=== PATIENT | female | born 1985 | race Caucasian/White ===

== ENCOUNTER 2020-04-15 09:46 | Day surgery (SDC) | payer OTHER ==
[~2020-04-15] VITALS: Ht 167.6 cm; Wt 78.1 kg
[2020-04-15] MEDS ORDERED: FIORICET 325 MG1 TA1 PO (11:18)
[2020-04-15] MEDS ORDERED: ADVIL200 MG PO (11:20)
[2020-04-15 11:40] VITALS: BP 110/72; PULSE 78; TEMP 97.9
[2020-04-15 12:41] VITALS: BP 114/82; PULSE 64; TEMP 97.7
[2020-04-15 12:45] VITALS: BP 113/78; PULSE 64
[2020-04-15 13:00] VITALS: BP 114/72; PULSE 63
[2020-04-15 13:15] VITALS: BP 112/80; PULSE 61
[2020-04-15 13:20] VITALS: BP 114/73; PULSE 73
--- NOTE | 2020-04-15 13:51 | NUR ---
PT RETURNED FROM ENDOSCOPY PROCEDURE ROOM PER CART INTO BAY#2. PT ALERT AND SLEEPY. LUNGS CLEAR, HRR, BOWEL SOUNDS PRESENT. PT DENIES PAIN OR NAUSEA AT THIS TIME. APPLE JUICE AND VIANNEY CRACKERS REQUESTED AND OFFERED. WILL CONT TO MONITOR PROGRESS.
--- NOTE | 2020-04-15 14:04 | NUR ---
PT ALERT AND ORIENTATED. TOLERATING FOOD AND FLUIDS. UP TO THE BATHROOM WITHOUT DIFFICULTY. DISMISSAL INSTRUCTIONS GIVEN, PT DENIES QUESTIONS. PT DENIES PAIN OR NAUSEA OR VOMITING. IV DC'D TO RIGHT WRIST WITHOUT DIFFICULTY. PT DISMISSED PER WC TO FAMILY VEHICLE. , MITA MARR.
== END 2020-04-15 14:10 | disposition home or self-care (01) ==
LOC: SDCO 09:46
DX: K59.00 Constipation, unspecified (principal); K64.0 First degree hemorrhoids; K21.00 Gastro-esophageal reflux disease with esophagitis, without bleeding; Q39.8 Other congenital malformations of esophagus; F41.9 Anxiety disorder, unspecified; G43.909 Migraine, unspecified, not intractable, without status migrainosus
CPT/HCPCS: J2250; J2704; J3010; J7030

== ENCOUNTER → 2020-06-26 | Outpatient (CLI) | payer OTHER ==
[~2020-06-26] MED LIST: ADVIL200 MG PO; FIORICET 325 MG1 TA1 PO
== END ==
LOC: COL.RAD 06-15 08:00
DX: K21.9 Gastro-esophageal reflux disease without esophagitis (principal); R14.0 Abdominal distension (gaseous)
CPT/HCPCS: A9541

== ENCOUNTER 2021-08-04 07:17 | Emergency (ER) | payer OTHER ==
[~2021-08-04] VITALS: Ht 167.6 cm; Wt 86.4 kg
[2021-08-04 07:25] VITALS: BP 120/85; PULSE 89
[2021-08-04 07:43] LABS: BASO % 0.4 % (0.0-2.0); EOS # 0.1 K/mm3 (0.0-0.7); EOS % 1.5 % (0.0-4.0); GRAN # 2.8 K/mm3 (1.4-6.5); GRAN % 53.2 % (42.2-75.2); HEMATOCRIT 38.7 % (37.0-47.0); HEMOGLOBIN 13.1 g/dl (12.5-16.0); MEAN CELL VOLUME 89 fl (80.0-100.0); MEAN CORPUSCULAR HEMOGLOBIN 30 pg (27-31); MEAN CORPUSCULAR HGB CONC 34 g/dl (33.0-37.0); MEAN PLATELET VOLUME 10.7 fl (7.4-10.4); MONO # 0.4 K/mm3 (0.1-0.6); MONO % 6.7 % (1.7-9.3); PLATELET COUNT 194 K/mm3 (130-400); RED BLOOD COUNT 4.34 M/mm3 (4.10-5.30); REDCELL DISTRIBUTION WIDTH-CV 12.4 % (11.5-14.5)
[2021-08-04 08:03] LABS: ALBUMIN 4.1 gm/dL (3.5-5.0); BILIRUBIN,TOTAL 0.5 mg/dL (0.2-1.2); CALCIUM 8.9 mg/dL (8.4-10.2); CREATININE, serum 0.77 mg/dL (0.57-1.11); POTASSIUM 3.7 mmol/L (3.5-4.5); TOTAL PROTEIN 7.8 gm/dL (6.2-8.1)
[2021-08-04 08:56] LABS: COLLECTION METHOD CLEAN CATCH
[2021-08-04 09:07] LABS: PH 9 (5-8); SQUAMOUS EPITHELIAL None Seen /hpf (0-10); URINE APPEARANCE Clear (CLEAR/HAZY); URINE BACTERIA None Seen /hpf (NONE SEEN); URINE BILIRUBIN Negative (NEGATIVE); URINE BLOOD 3+ (NEGATIVE); URINE COLOR Colorless (YELLOW); URINE GLUCOSE Negative (NEGATIVE); URINE KETONE Negative (NEGATIVE); URINE LEUKOCYTE ESTERASE Negative (NEGATIVE); URINE NITRATE Negative (NEGATIVE); URINE PROTEIN(semi-quant) Negative (NEGATIVE); URINE RBC None Seen /hpf (0-2); URINE UROBILINOGEN Negative (NEGATIVE)
[2021-08-04] MEDS ORDERED: ANTIVERT 25MG25 MG PO (11:44)
== END 2021-08-04 12:09 | disposition home or self-care (01) ==
LOC: COL.ER 07:17
PROVIDERS: Emergency Medicine
DX: R42 Dizziness and giddiness (principal); H55.00 Unspecified nystagmus; Z87.891 Personal history of nicotine dependence; Z20.822 Contact with and (suspected) exposure to COVID-19; Z91.040 Latex allergy status
CPT/HCPCS: J1200; J2405; J2765; J7120; Q9967

== ENCOUNTER 2021-08-31 20:06 | Emergency (ER) | payer OTHER ==
[~2021-08-31] VITALS: Ht 167.6 cm; Wt 86.4 kg
[~2021-08-31 20:06] MED LIST changes: +ANTIVERT 25MG25 MG PO
[2021-08-31 20:20] VITALS: TEMP 98.5
[2021-08-31 21:05] LABS: COLLECTION METHOD CLEAN CATCH
[2021-08-31 21:11] LABS: MUCOUS Present (NOT PRESENT); PH 7 (5-8); SQUAMOUS EPITHELIAL None Seen /hpf (0-10); URINE APPEARANCE Clear (CLEAR/HAZY); URINE BACTERIA None Seen /hpf (NONE SEEN); URINE BILIRUBIN Negative (NEGATIVE); URINE BLOOD Negative (NEGATIVE); URINE COLOR Yellow (YELLOW); URINE GLUCOSE Negative (NEGATIVE); URINE KETONE Negative (NEGATIVE); URINE LEUKOCYTE ESTERASE Negative (NEGATIVE); URINE NITRATE Negative (NEGATIVE); URINE PROTEIN(semi-quant) Negative (NEGATIVE); URINE RBC 0-2 /hpf (0-2); URINE UROBILINOGEN Negative (NEGATIVE)
[2021-08-31 21:13] LABS: BASO # 0.1 K/mm3 (0.0-0.2); BASO % 0.6 % (0.0-2.0); EOS # 0.1 K/mm3 (0.0-0.7); GRAN # 5.1 K/mm3 (1.4-6.5); GRAN % 61.1 % (42.2-75.2); HEMATOCRIT 40.1 % (37.0-47.0); HEMOGLOBIN 13.7 g/dl (12.5-16.0); LYMPH # 2.6 K/mm3 (1.2-3.4); LYMPH % 31.4 % (20.0-51.0); MEAN CELL VOLUME 89 fl (80.0-100.0); MEAN CORPUSCULAR HEMOGLOBIN 31 pg (27-31); MEAN CORPUSCULAR HGB CONC 34 g/dl (33.0-37.0); MEAN PLATELET VOLUME 10.5 fl (7.4-10.4); MONO # 0.5 K/mm3 (0.1-0.6); MONO % 5.7 % (1.7-9.3); PLATELET COUNT 238 K/mm3 (130-400); RED BLOOD COUNT 4.49 M/mm3 (4.10-5.30); REDCELL DISTRIBUTION WIDTH-CV 12.3 % (11.5-14.5)
[2021-08-31 21:27] LABS: ALBUMIN 4.5 gm/dL (3.5-5.0); BILIRUBIN,TOTAL 0.3 mg/dL (0.2-1.2); CALCIUM 9.1 mg/dL (8.4-10.2); CREATININE, serum 0.79 mg/dL (0.57-1.11); POTASSIUM 3.8 mmol/L (3.5-4.5); TOTAL PROTEIN 7.7 gm/dL (6.2-8.1)
[2021-08-31] MEDS ORDERED: REGLAN 10MG10 MG/TAB PO (22:41)
[2021-08-31 23:11] VITALS: BP 126/77; PULSE 84
== END 2021-08-31 23:11 | disposition home or self-care (01) ==
LOC: COL.ER 20:06
PROVIDERS: Student in an Organized Health Care Education/Training Program
DX: R10.84 Generalized abdominal pain (principal); R55 Syncope and collapse; R19.5 Other fecal abnormalities; Z91.040 Latex allergy status; Z32.02 Encounter for pregnancy test, result negative
CPT/HCPCS: J2765; Q9967